=== PATIENT | male | born 1990 | race Asian ===

== ENCOUNTER 2024-07-11 12:04 | Emergency (ER) | payer SELFPAY ==
[~2024-07-11] VITALS: Ht 175.3 cm; Wt 61.0 kg
[2024-07-11 12:12] VITALS: O2SAT 98
[2024-07-11] MEDS: IBUPROFEN 400MG TABLET PO ONE (14:30)
[2024-07-11 15:04] VITALS: BP 110/63; PULSE 77; RESP 16; TEMP 37.2; O2SAT 98
== END 2024-07-11 15:05 | disposition home or self-care (01) ==
LOC: ER 12:04
DX: H57.13 Ocular pain, bilateral (principal); Y04.8XXA Assault by other bodily force, initial encounter; Y93.89 Activity, other specified; Y92.89 Other specified places as the place of occurrence of the external cause; Y99.8 Other external cause status
CPT/HCPCS: 99283